=== PATIENT | male | born 1985 | race Two or more races ===

== ENCOUNTER 2020-06-10 11:54 | Emergency (ER) | payer OTHER ==
[~2020-06-10] VITALS: Ht 170.2 cm; Wt 86.2 kg
[~2020-06-10 11:54] MED LIST: IBUPROFEN800 MG PO
[2020-06-10] MEDS ORDERED: NORFLEX100MG PO (13:18)
[2020-06-10] MEDS ORDERED: KETO10TA2 PO (13:18)
== END 2020-06-10 14:05 | disposition home or self-care (01) ==
LOC: ER 11:54
DX: M54.5 Low back pain (principal); M54.2 Cervicalgia